=== PATIENT | male | born 1990 | race African-American/Black ===

== ENCOUNTER 2018-02-10 16:29 | Emergency (ER) | payer OTHER ==
[~2018-02-10] VITALS: Ht 175.3 cm; Wt 77.1 kg
[2018-02-10] MEDS ORDERED: AUGMENTIN 500-1 EACH PO (18:16)
== END 2018-02-10 18:35 | disposition home or self-care (01) ==
LOC: ER 16:29
DX: S61.551A Open bite of right wrist, initial encounter (principal); S61.552A Open bite of left wrist, initial encounter; Z23 Encounter for immunization; W54.0XXA Bitten by dog, initial encounter; Y92.89 Other specified places as the place of occurrence of the external cause; Y93.89 Activity, other specified; Y99.8 Other external cause status

== ENCOUNTER 2018-07-27 19:25 | Emergency (ER) | payer OTHER ==
[~2018-07-27] VITALS: Ht 175.3 cm; Wt 72.6 kg
[~2018-07-27 19:25] MED LIST: AUGMENTIN 500-1 EACH PO
[2018-07-27 19:26] VITALS: BP 129/90
[2018-07-27] MEDS ORDERED: NAPROSYN500 MG PO (20:38)
== END 2018-07-27 21:00 | disposition home or self-care (01) ==
LOC: ER 19:25
DX: S89.92XA Unspecified injury of left lower leg, initial encounter (principal); W11.XXXA Fall on and from ladder, initial encounter; Y92.009 Unspecified place in unspecified non-institutional (private) residence as the place of occurrence of the external cause; Y99.0 Civilian activity done for income or pay; Y99.8 Other external cause status